=== PATIENT | female | born 1975 | race Caucasian/White ===

== ENCOUNTER 2018-04-30 11:00 | Day surgery (SDC) | payer OTHER ==
[2018-04-30] MEDS ORDERED: Ringers Lactate 1,000 ML IV ONE (11:39)
[2018-04-30] MEDS ORDERED: PROPOFOL 200 MG/20 ML VIAL IV ONE (11:59)
[2018-04-30] MEDS ORDERED: LIDOCAINE 1% MPF 2 ML AMPULE ONE (11:59)
--- NOTE | 2018-05-01 00:47 | OP ---
Surgeon: Andrzej Perez MD Procedure To Be Performed: Colonoscopy. Indication For Procedure: Family history of colon cancer, left lower quadrant pain. Plan For Anesthesia: Monitored anesthesia care. Complexity: Average. Technique: After obtaining informed consent from the patient and explaining risks and complications which include, but are not limited to bleeding, infection, perforation, and anesthesia complication, the patient was placed in the left lateral position and sedation was given. From then on, digital re ctal exam was performed and then the scope inserted into the rectum and carefully guided up until the terminal ileum. Subsequently, the scope withdrawn while carefully examining the mucosa. Scope with drawal time was 10 minutes. Quality of prep according to [place] prep score was 3 + 3 equal to 9 x 9. The cecum was identified by the appendiceal orifice and ileocecal valve. Findings: Digital rectal exam was normal. There was mild redundancy noted in the entire colon. How ever, there was no gross lesion seen except for in the cecum. There were 2 flat polyps around 4 to 7 mm in size. These were removed by hot biopsy. The terminal ileum was normal. Retroflexion reveale d very small internal hemorrhoids. Complications: None. Tolerance To Anesthesia: Excellent. Postoperative Diagnosis: Colon polyps. Plan: 1.Await pathology results. 2.Follow up in the GI clinic in 2 weeks. 3.Repeat colonoscopy in 3 years due to family history. US/MODL Voice ID: [id number] Report ID: [id number]
== END 2018-04-30 14:39 | disposition home or self-care (01) ==
LOC: OR 11:00
PROVIDERS: ATTEND Internal Medicine Gastroenterology
PROC: 0DBH8ZX Excision of Cecum, Via Natural or Artificial Opening Endoscopic, Diagnostic (ICD-10-PCS; principal; 2018-04-30 12:00)
DX: Z12.11 Encounter for screening for malignant neoplasm of colon (principal); D12.0 Benign neoplasm of cecum; K64.8 Other hemorrhoids
CPT/HCPCS: 88305; J2001

== ENCOUNTER 2021-12-31 07:28 | Day surgery (SDC) | payer BC, OTHER ==
[2021-12-31] MEDS ORDERED: Ringers Lactate 1,000 ML IV ONE (07:46)
[2021-12-31 08:05] VITALS: O2SAT 100
[2021-12-31] MEDS ORDERED: LIDOCAINE 1% MPF 5 ML VIAL ONE (10:42)
[2021-12-31] MEDS ORDERED: propofoL 200 MG/20 ML VIAL IV ONE (10:42)
[2021-12-31 11:46] VITALS: TEMP 97.6
[2021-12-31 11:47] VITALS: BP 105/69
--- NOTE | 2021-12-31 23:36 | OP ---
Surgeon: Andrzej Perez MD Procedure To Be Performed: Colonoscopy. Indication For Procedure: Colon cancer screening. Family history of colon cancer. Plan For Anesthesia: Monitored anesthesia care. Complexity: Average. Technique: After obtaining informed consent from the patient, explaining risks and complications whi ch include, but are not limited to, bleeding, infection, perforation, and anesthesia complications, t he patient was placed in the left lateral position and sedation was given. From then on, digital rec [place] exam was performed. Scope inserted into the rectum and carefully advanced up to the terminal ile um. Then, scope gradually withdrawn while carefully examining the mucosa. Quality of prep was good. Scope withdrawal time 11 minutes. Findings: The entire colon appeared to be quite redundant; however, no gross mass lesion or polyp wa s seen. The terminal ileum appeared normal. Retroflexion revealed grade 1 internal hemorrhoids. Complications: None. Tolerance To Anesthesia: Excellent. Estimated Blood Loss: None. Postoperative Diagnosis: Redundant colon, otherwise normal colonoscopy. Plan: Continue current management. Follow up in the GI clinic in 2 weeks. Repeat colonoscopy in 3 to 5 years given the family history. US/MODL Voice ID: [id number] Report ID: [id number]
== END 2021-12-31 12:46 | disposition home or self-care (01) ==
LOC: OR 07:28
PROVIDERS: ATTEND Internal Medicine Gastroenterology
PROC: 0DJD8ZZ Inspection of Lower Intestinal Tract, Via Natural or Artificial Opening Endoscopic (ICD-10-PCS; principal; 2021-12-31 08:30)
DX: Z12.11 Encounter for screening for malignant neoplasm of colon (principal); Z80.0 Family history of malignant neoplasm of digestive organs; Z20.822 Contact with and (suspected) exposure to COVID-19; K64.8 Other hemorrhoids
CPT/HCPCS: 81025; 45378; U0003; J2704; J7120